=== PATIENT | male | born 1995 | race Caucasian/White ===

== ENCOUNTER 2018-08-02 08:32 | Emergency (ER) | payer MEDICAID ==
[2018-08-02] MEDS ORDERED: ONDANSETRON 4 MG/2 ML VIAL IVP ONE (08:40)
[2018-08-02] MEDS ORDERED: NS 1,000 ML IV ONE ×4 (08:40→08:50)
[2018-08-02] MEDS ORDERED: DIPHENOXYLATE/ATROPINE LOMOTIL 1 TAB PO ONE (08:43)
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
[2018-08-02 09:09] LABS: PLATELET COUNT 276 10^3/uL (150-400)
[2018-08-02] MEDS ORDERED: IOPAMIDOL (ISOVUE-300) 100 ML BTL ONE (09:42)
[2018-08-02 10:36] VITALS: BP 121/70
--- NOTE | 2018-08-02 11:14 | ASMTCMCOM ---
CM Note CM Note Notes: Pt presented to the ED for N/V/D Pt is homeless and new to the [facility]. Pt was recently homeless in [place] for about 4 months. Pt states he moved to [place] from [place] "after I became homeless." Pt states he would like to return to [place] but hasn't been able to save up enough money. Pt provided various local homelessness resources including [facility] where he can go and complete Coordinated Entry today. Pt provided a Medicaid cab (CONF# [id number]) to the [facility]. Pt was also encouraged to follow-up with [facility]; info provided. Pt also provided a [facility] pamphlet and encouraged him to reach out and enroll in the program. CM available for further assistance if needed. Date Signed: 08/02/2018 11:13 AM Electronically Signed By:Elinor Humphrey RN
== END 2018-08-02 10:51 | disposition home or self-care (01) ==
DX: R19.7 Diarrhea, unspecified (principal); R10.9 Unspecified abdominal pain; E86.9 Volume depletion, unspecified
CPT/HCPCS: Q9967